=== PATIENT | male | born 2000 | race Hispanic/Latino ===

== ENCOUNTER 2022-01-18 21:17 | Emergency (ER) | payer OTHER ==
[~2022-01-18] VITALS: Ht 172.7 cm; Wt 78.0 kg
[~2022-01-18 21:17] MED LIST: CELEBREX200 MG PO; GABAPENTIN300 MG PO; HYDROCODON-ACE1 EA11 PO
== END 2022-01-18 22:22 | disposition home or self-care (01) ==
LOC: ED 21:17
DX: S90.31XA Contusion of right foot, initial encounter (principal); W23.0XXA Caught, crushed, jammed, or pinched between moving objects, initial encounter; Y99.0 Civilian activity done for income or pay
CPT/HCPCS: 73630; 99283-25

== ENCOUNTER 2023-02-09 06:29 | Emergency (ER) | payer OTHER ==
[~2023-02-09] VITALS: Ht 172.7 cm; Wt 72.0 kg
[2023-02-09 07:05] LABS: BASOPHILS 0.4 % (0-2); EOSINOPHILS 0.4 % (0-6); HEMATOCRIT 45.7 % (35.0-50.0); HEMOGLOBIN 15.7 g/dL (12.0-18.0); LYMPHOCYTES 40.1 % (24-44); MCH 29.7 (27-36); MCHC 34.4 g/dl (30-36); MCV 86.3 fl (81-99); MONOCYTES 5.9 % (0-12); NEUTROPHILS 53.2 % (39-80); PLATELET COUNT 232 K/uL (140-440); RDW 13.1 (10.5-15.0)
[2023-02-09 07:34] LABS: INFLUENZA B NAA NEGATIVE (NEGATIVE); RESPIRATORY SYNCYTIAL VIR NAA NEGATIVE (NEGATIVE)
[2023-02-09 08:11] VITALS: BP 110/93
== END 2023-02-09 08:12 | disposition home or self-care (01) ==
LOC: ED 06:29
PROVIDERS: Family Medicine
DX: R04.2 Hemoptysis (principal); J02.9 Acute pharyngitis, unspecified
CPT/HCPCS: 36415; 85025; 87502; 87651; U0002

== ENCOUNTER 2023-02-27 17:52 | Emergency (ER) | payer OTHER ==
[~2023-02-27] VITALS: Ht 172.7 cm; Wt 73.0 kg
--- OUTSIDE RECORDS SUMMARY | 2023-02-27 17:59 | XMS ---
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 Mimi VISIT COUNT (12 MO.) 3 DEMETRIS Mckenzie TOTAL 3 NOTE: Visits indicate total known visits. ED/UCC VISIT TRACKING (12 MO.) 02/27/2023 17:53 [facility]IS [place] TYPE: Emergency COMPLAINT: - LUNG PROBLEM 02/09/2023 06:29 [facility] [place] TYPE: Emergency COMPLAINT: - COUGHING BLOOD DIAGNOSES: - Acute pharyngitis, unspecified - Contact with and (suspected) exposure to COVID-19 - Encounter for screening for COVID-19 - Hemoptysis 12/18/2022 19:57 [facility] [place] TYPE: Emergency COMPLAINT: - LIP LACERATION DIAGNOSES: - Exposure to other specified factors, initial encounter - Laceration without foreign body of lip, initial encounter - Scar conditions and fibrosis of skin - Strain of unspecified muscle, fascia and tendon at shoulder and upper arm level, left arm, initial encounter INPATIENT VISIT TRACKING (12 MO.) No inpatient visits to display in this time frame [id number]
[2023-02-27 18:20] LABS: BASOPHILS 0.4 % (0-2); EOSINOPHILS 0.4 % (0-6); HEMATOCRIT 45.8 % (35.0-50.0); HEMOGLOBIN 15.7 g/dL (12.0-18.0); LYMPHOCYTES 25.7 % (24-44); MCH 29.1 (27-36); MCHC 34.3 g/dl (30-36); NEUTROPHILS 65.5 % (39-80); PLATELET COUNT 259 K/uL (140-440); RBC 5.39 M/ul (4.3-5.7)
[2023-02-27 18:34] LABS: ALBUMIN 4.6 g/dL (3.4-5.0); ALBUMIN/GLOBULIN RATIO 1.31 (1.1-2.4); ANION GAP 16.7 (7-21); BILIRUBIN, TOTAL 0.4 ng/dL (0.2-1.0); BUN/CREATININE RATIO 9.16 (6.0-28.6); CALCIUM 8.9 mg/dL (8.5-10.1); CREATININE, SERUM 1.2 mg/dL (0.70-1.30); POTASSIUM 2.7 mmol/L (3.5-5.1); PROTEIN, TOTAL 8.1 g/dL (6.4-8.2)
[2023-02-27 18:52] LABS: AMPHETAMINES, URINE NEGATIVE (NEGATIVE); BARBITURATES, URINE NEGATIVE (NEGATIVE); BENZODIAZEPINE, URINE NEGATIVE (NEGATIVE); BUPRENORPHINE, URINE NEGATIVE (NEGATIVE); CANNABINOID, URINE POSITIVE (NEGATIVE); COCAINE, URINE NEGATIVE (NEGATIVE); ECSTASY, URINE NEGATIVE (NEGATIVE); FENTANYL, URINE NEGATIVE (NEGATIVE); METHADONE, URINE NEGATIVE (NEGATIVE); OPIATES, URINE NEGATIVE (NEGATIVE); OXYCODONE, URINE NEGATIVE (NEGATIVE); PHENCYCLIDINE, URINE NEGATIVE (NEGATIVE)
[2023-02-27 22:04] VITALS: BP 131/67
--- NOTE | 2023-02-28 19:44 | EKG ---
[facility] [address] [place] [address] Signed Sinus tachycardia Rightward axis Biventricular hypertrophy Abnormal ECG No previous ECGs available Confirmed by WAI WARE MD ([id number]) on 02/28/2023 7:44:37 PM Electronically Signed By: WAI WARE 02/28/23 194 PATIENT NAME: KENNY LYON LORENA Electrocardiogram DATE OF : [birth year] PHYSICIAN: WAI WARE REPORT #: [id number] REPORT IS CONFIDENTIAL AND NOT TO BE RELEASED WITHOUT AUTHORIZATION
== END 2023-02-27 22:00 | disposition home or self-care (01) ==
LOC: ED 17:52
PROVIDERS: Emergency Medicine
DX: F12.929 Cannabis use, unspecified with intoxication, unspecified (principal); R00.0 Tachycardia, unspecified
CPT/HCPCS: 36415; 80053; 80307; 85025; 93005; 93010; A9270; J2060; J3480; J7030

== ENCOUNTER 2023-02-28 23:14 | Emergency (ER) | payer OTHER ==
[~2023-02-28] VITALS: Ht 172.7 cm; Wt 73.3 kg
--- OUTSIDE RECORDS SUMMARY | 2023-02-28 23:20 | XMS ---
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 Mimi VISIT COUNT (12 MO.) 4 DEMETRIS Mckenzie TOTAL 4 NOTE: Visits indicate total known visits. ED/UCC VISIT TRACKING (12 MO.) 02/28/2023 23:14 DEMET[facility]IS [place] TYPE: Emergency COMPLAINT: - ABD PAIN 02/27/2023 17:53 [facility]ET[facility]IS [place] TYPE: Emergency COMPLAINT: - LUNG PROBLEM DIAGNOSES: - Cannabis use, unspecified with intoxication, unspecified - Restlessness and agitation - Tachycardia, unspecified 02/09/2023 06:29 [facility]ET[facility]IS [place] TYPE: Emergency [...] visits to display in this time frame [id number]
[2023-03-01 00:14] VITALS: BP 128/80
== END 2023-03-01 00:15 | disposition home or self-care (01) ==
LOC: ED 23:14
DX: R10.9 Unspecified abdominal pain (principal)
CPT/HCPCS: 74022; 99284-25

== ENCOUNTER 2023-03-02 19:34 | Emergency (ER) | payer OTHER ==
[~2023-03-02] VITALS: Ht 172.7 cm; Wt 72.9 kg
--- OUTSIDE RECORDS SUMMARY | 2023-03-02 19:42 | XMS ---
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 Mimi VISIT COUNT (12 MO.) 5 DEMETRIS Mckenzie TOTAL 5 NOTE: Visits indicate total known visits. ED/UCC VISIT TRACKING (12 MO.) 03/02/2023 19:34 [facility]IS [place] TYPE: Emergency COMPLAINT: - NECK PAIN 02/28/2023 23:[address] [facility] [place] TYPE: Emergency COMPLAINT: - ABD PAIN 02/27/2023 17:53 DEMETRIS [facility] [place] Torres [facility] TYPE: Emergency COMPLAINT: - LUNG PROBLEM DIAGNOSES: - Cannabis use, unspecified with intoxication, unspecified - Restlessness and agitation - Tachycardia, unspecified 02/09/2023 06:[address] [facility] [place] TYPE: Emergency COMPLAINT: - COUGHING BLOOD DIAGNOSES: - Acute pharyngitis, unspecified - Contact with and (suspected) exposure to COVID-19 - Encounter for screening for COVID-19 - Hemoptysis 12/18/2022 19:57 [facility] Negron Torres [facility] [place] TYPE: Emergency COMPLAINT: - LIP LACERATION [...] visits to display in this time frame [id number]
[2023-03-02 20:58] LABS: BASOPHILS 0.7 % (0-2); EOSINOPHILS 0.9 % (0-6); HEMATOCRIT 45.1 % (35.0-50.0); HEMOGLOBIN 15.8 g/dL (12.0-18.0); LYMPHOCYTES 40.8 % (24-44); MCH 29.6 (27-36); MCV 84.6 fl (81-99); MONOCYTES 9.9 % (0-12); NEUTROPHILS 47.7 % (39-80); PLATELET COUNT 226 K/uL (140-440); RBC 5.34 M/ul (4.3-5.7); RDW 12.9 (10.5-15.0)
[2023-03-02 21:02] LABS: BILIRUBIN, URINE NEGATIVE (negative); BLOOD/HGB, URINE NEGATIVE (Negative); KETONE, URINE TRACE (Negative); LEUK ESTERASE, URINE NEGATIVE (negative); NITRITE, URINE NEGATIVE (negative)
[2023-03-02 21:15] LABS: AMPHETAMINES, URINE NEGATIVE (NEGATIVE); BARBITURATES, URINE NEGATIVE (NEGATIVE); BENZODIAZEPINE, URINE NEGATIVE (NEGATIVE); BUPRENORPHINE, URINE NEGATIVE (NEGATIVE); CANNABINOID, URINE POSITIVE (NEGATIVE); COCAINE, URINE NEGATIVE (NEGATIVE); ECSTASY, URINE NEGATIVE (NEGATIVE); FENTANYL, URINE NEGATIVE (NEGATIVE); METHADONE, URINE NEGATIVE (NEGATIVE); OPIATES, URINE NEGATIVE (NEGATIVE); OXYCODONE, URINE NEGATIVE (NEGATIVE); PHENCYCLIDINE, URINE NEGATIVE (NEGATIVE)
[2023-03-02 21:19] LABS: ACETAMINOPHEN 0 ug/mL (10-30); ALBUMIN 4.6 g/dL (3.4-5.0); ALBUMIN/GLOBULIN RATIO 1.31 (1.1-2.4); ALCOHOL, MEDICAL <3 ng/dL (<3); ALKALINE PHOSPHATASE 90 U/L (46-116); ALT (SGPT) 47 U/L (14-59); ANION GAP 17.6 (7-21); AST (SGOT) 77 U/L (15-37); BILIRUBIN, TOTAL 0.6 ng/dL (0.2-1.0); CARBON DIOXIDE 25 mmol/L (21-32); CHLORIDE 97 mmol/L (98-107); CREATININE, SERUM 1.25 mg/dL (0.70-1.30); GLOMERULAR FILTRATION RATE,EST 84 mL/min (>60); POTASSIUM 3.6 mmol/L (3.5-5.1); PROTEIN, TOTAL 8.1 g/dL (6.4-8.2); SALICYLATE 0.5 mg/dL (2.8-20.0); TSH, 3RD GENERATION 1.899 uIU/mL (0.358-3.740); UREA NITROGEN 14 mg/dL (7-18)
[2023-03-02 22:08] VITALS: BP 131/87
== END 2023-03-02 22:09 | disposition home or self-care (01) ==
LOC: ED 19:34
PROVIDERS: Internal Medicine
DX: F30.9 Manic episode, unspecified (principal); F29 Unspecified psychosis not due to a substance or known physiological condition
CPT/HCPCS: 36415; 80053; 80307; 81003; 84443; 85025; 99283; G0480

== ENCOUNTER 2023-03-08 15:38 | Emergency (ER) | payer OTHER ==
[~2023-03-08] VITALS: Ht 170.2 cm; Wt 73.3 kg
--- OUTSIDE RECORDS SUMMARY | 2023-03-08 15:47 | XMS ---
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 E.D. VISIT COUNT (12 MO.) [address] [facility] TOTAL 6 NOTE: Visits indicate total known visits. ED/UCC VISIT TRACKING (12 MO.) 03/08/2023 15:39 [facility]IS [place] TYPE: Emergency COMPLAINT: - MEDICAL CLEARANCE 03/02/2023 19:34 DEMET[facility]IS [place] TYPE: Emergency COMPLAINT: - NECK PAIN DIAGNOSES: - Anxiety disorder, unspecified - Manic episode, unspecified - Unspecified psychosis not due to a substance or known physiological condition 02/28/2023 23:[address] [facility] [place] TYPE: Emergency COMPLAINT: - ABD PAIN DIAGNOSES: - Other symptoms and signs involving cognitive functions and awareness - Unspecified abdominal pain 02[facility]27[facility]2023 17:[facility] [place] [facility] COMPLAINT: - LUNG PROBLEM DIAGNOSES: - Cannabis use, unspecified with intoxication, unspecified - Restlessness and agitation - Tachycardia, unspecified 02/09/2023 06:29 [facility] [place] [facility]: Emergency COMPLAINT: - COUGHING BLOOD DIAGNOSES: - Acute pharyngitis, unspecified - Contact with and (suspected) exposure to COVID-19 - Encounter for screening for COVID-19 - Hemoptysis 12/18/2022 19:[address] [facility] [place] TYPE: Emergency COMPLAINT: - LIP [...] visits to display in this time frame [id number]
[2023-03-08 18:23] VITALS: BP 120/74
== END 2023-03-08 18:24 | disposition home or self-care (01) ==
LOC: ED 15:38
DX: M62.830 Muscle spasm of back (principal); F31.2 Bipolar disorder, current episode manic severe with psychotic features
CPT/HCPCS: 99283

== ENCOUNTER 2023-03-10 12:55 | Emergency (ER) | payer OTHER ==
[~2023-03-10] VITALS: Ht 172.7 cm; Wt 74.9 kg
--- OUTSIDE RECORDS SUMMARY | 2023-03-10 13:03 | XMS ---
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 E.D. VISIT COUNT (12 MO.) [address] [facility] [address] TOTAL 7 NOTE: Visits indicate total known visits. ED/UCC VISIT TRACKING (12 MO.) 03/10/2023 12:56 [facility]IS [facility] TYPE: Emergency COMPLAINT: - SPITTING UP BLOOD 03/08/2023 15:39 [facility] [place] TYPE: Emergency COMPLAINT: - MEDICAL CLEARANCE 03/02/2023 19:34 DEMET[facility]IS [place] TYPE: Emergency COMPLAINT: - NECK PAIN DIAGNOSES: - Anxiety disorder, unspecified - Manic episode, unspecified - Unspecified psychosis not due to a substance or known physiological condition 02/28/2023 23:14 [facility] [place] TYPE: Emergency COMPLAINT: - ABD PAIN DIAGNOSES: - Other symptoms and signs involving cognitive functions and awareness - Unspecified abdominal pain 02/27/2023 17:53 [facility]IS [place] TYPE: Emergency [...] visits to display in this time frame [id number]
[2023-03-10 15:15] VITALS: BP 110/61
== END 2023-03-10 15:15 | disposition home or self-care (01) ==
LOC: ED 12:55
DX: R04.0 Epistaxis (principal)
CPT/HCPCS: 99283

== ENCOUNTER 2023-03-12 04:13 | Emergency (ER) | payer OTHER ==
[~2023-03-12] VITALS: Ht 172.7 cm; Wt 75.0 kg
--- OUTSIDE RECORDS SUMMARY | 2023-03-12 04:21 | XMS ---
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 E.D. VISIT COUNT (12 MO.) [address] [facility] [facility] TOTAL 8 NOTE: Visits indicate total known visits. ED/UCC VISIT TRACKING (12 MO.) 03/12/2023 04:14 [facility]IS [facility] [place] TYPE: Emergency COMPLAINT: - DENTAL PROBLEM 03/10/2023 12:56 DEMETRIS [place] TYPE: Emergency COMPLAINT: - SPITTING UP BLOOD 03/08/2023 15:39 [facility] [place] TYPE: Emergency COMPLAINT: - MEDICAL CLEARANCE DIAGNOSES: - Bipolar disorder, current episode manic severe with psychotic features - Muscle spasm of back - Pain in thoracic spine 03/02/2023 19:34 [facility] [place] TYPE: Emergency COMPLAINT: - NECK PAIN DIAGNOSES: - Anxiety disorder, unspecified - Manic episode, unspecified - Unspecified psychosis not due to a substance or known physiological condition 02/28/2023 23:[address] [facility] [address] [facility] [place] TYPE: Emergency COMPLAINT: - ABD PAIN DIAGNOSES: - Other symptoms and signs involving cognitive functions and awareness - Unspecified abdominal pain 02/27/2023 17:[address] [facility] [address] [facility] [place] TYPE: Emergency COMPLAINT: - LUNG PROBLEM DIAGNOSES: - Cannabis use, unspecified with intoxication, unspecified - Restlessness and agitation - Tachycardia, unspecified 02/09/2023 06:29 [facility] [place] TYPE: Emergency COMPLAINT: - COUGHING BLOOD DIAGNOSES: - Acute pharyngitis, unspecified - Contact with and (suspected) exposure to COVID-19 - Encounter for screening for COVID-19 - Hemoptysis 12/18/2022 19:57 [facility] [place] TYPE: Emergency COMPLAINT: - [...] visits to display in this time frame [id number]
[2023-03-12 04:56] VITALS: BP 126/77
== END 2023-03-12 04:57 | disposition home or self-care (01) ==
LOC: ED 04:13
DX: Z13.39 Encounter for screening examination for other mental health and behavioral disorders (principal); Z87.820 Personal history of traumatic brain injury
CPT/HCPCS: 99282

== ENCOUNTER 2023-03-12 23:30 | Emergency (ER) | payer OTHER ==
[~2023-03-12] VITALS: Ht 172.7 cm; Wt 75.0 kg
[2023-03-13 01:00] VITALS: BP 136/76
== END 2023-03-13 00:50 | disposition home or self-care (01) ==
LOC: ED 23:30
DX: Z00.8 Encounter for other general examination (principal); K08.89 Other specified disorders of teeth and supporting structures
CPT/HCPCS: 99283

== ENCOUNTER 2023-03-14 19:20 | Emergency (ER) | payer OTHER ==
[~2023-03-14] VITALS: Ht 172.7 cm; Wt 73.9 kg
[2023-03-14 21:06] VITALS: BP 127/76
== END 2023-03-14 21:07 | disposition home or self-care (01) ==
LOC: ED 19:20
DX: F22 Delusional disorders (principal)
CPT/HCPCS: 99283

== ENCOUNTER 2023-08-05 15:48 | Emergency (ER) | payer OTHER ==
[~2023-08-05] VITALS: Ht 172.7 cm; Wt 82.5 kg
[2023-08-05] MEDS ORDERED: AMOX TR-K CLV1 EAC1 PO (18:01)
[2023-08-05] MEDS ORDERED: MUPIROCIN22 GM TOP (18:01)
[2023-08-05 20:17] VITALS: BP 106/71
== END 2023-08-05 20:18 | disposition home or self-care (01) ==
LOC: ED 15:48
DX: S43.401A Unspecified sprain of right shoulder joint, initial encounter (principal); X58.XXXA Exposure to other specified factors, initial encounter
CPT/HCPCS: 73030

== ENCOUNTER 2023-08-11 17:08 | Emergency (ER) | payer OTHER ==
[~2023-08-11] VITALS: Ht 172.7 cm; Wt 80.0 kg
[~2023-08-11 17:08] MED LIST changes: +AMOX TR-K CLV1 EAC1 PO; +MUPIROCIN22 GM TOP
[2023-08-11] MEDS ORDERED: ondansetron HCL 4 MG/2 ML VIAL IV ONE (18:15)
[2023-08-11 18:29] LABS: EOSINOPHILS 0.6 % (0-6); HEMATOCRIT 45.3 % (35.0-50.0); HEMOGLOBIN 15.5 g/dL (12.0-18.0); LYMPHOCYTES 20.4 % (24-44); MCH 29.8 (27-36); MCHC 34.1 g/dl (30-36); MCV 87.4 fl (81-99); MONOCYTES 4.2 % (0-12); NEUTROPHILS 73.8 % (39-80); PLATELET COUNT 203 K/uL (140-440); RBC 5.19 M/ul (4.3-5.7); RDW 13.3 (10.5-15.0)
[2023-08-11 18:35] LABS: BILIRUBIN, URINE NEGATIVE (negative); BLOOD/HGB, URINE NEGATIVE (Negative); KETONE, URINE NEGATIVE (Negative); LEUK ESTERASE, URINE NEGATIVE (negative); NITRITE, URINE NEGATIVE (negative)
[2023-08-11 18:43] LABS: ALBUMIN 4.5 g/dL (3.4-5.0); ALBUMIN/GLOBULIN RATIO 1.41 (1.1-2.4); ANION GAP 12.9 (7-21); BILIRUBIN, TOTAL 0.4 ng/dL (0.2-1.0); BUN/CREATININE RATIO 7.92 (6.0-28.6); CALCIUM 9.3 mg/dL (8.5-10.1); CREATININE, SERUM 1.01 mg/dL (0.70-1.30); POTASSIUM 3.9 mmol/L (3.5-5.1); PROTEIN, TOTAL 7.7 g/dL (6.4-8.2)
[2023-08-11 19:27] VITALS: BP 126/73
[2023-08-11 19:37] LABS: AMPHETAMINES, URINE NEGATIVE (NEGATIVE); BARBITURATES, URINE NEGATIVE (NEGATIVE); BENZODIAZEPINE, URINE NEGATIVE (NEGATIVE); BUPRENORPHINE, URINE NEGATIVE (NEGATIVE); CANNABINOID, URINE POSITIVE (NEGATIVE); COCAINE, URINE NEGATIVE (NEGATIVE); ECSTASY, URINE NEGATIVE (NEGATIVE); FENTANYL, URINE NEGATIVE (NEGATIVE); METHADONE, URINE NEGATIVE (NEGATIVE); OPIATES, URINE NEGATIVE (NEGATIVE); OXYCODONE, URINE NEGATIVE (NEGATIVE); PHENCYCLIDINE, URINE NEGATIVE (NEGATIVE)
[2023-09-16] MEDS ORDERED: CYCLOBENZAPRINE10 MG PO (22:08)
== END 2023-08-11 19:28 | disposition home or self-care (01) ==
LOC: ED 17:08
PROVIDERS: Emergency Medicine; Internal Medicine
DX: R11.10 Vomiting, unspecified (principal); R47.89 Other speech disturbances
CPT/HCPCS: 36415; 80053; 80307; 81003; 83690; 85025; 96374; 99284-25; J2405

== ENCOUNTER 2024-01-02 20:50 | Emergency (ER) | payer OTHER ==
[~2024-01-02] VITALS: Ht 172.7 cm; Wt 93.2 kg
--- OUTSIDE RECORDS SUMMARY | ~2024-01-02 | XMS | Continuity of Care Document ---
Demographics + + + | Address | [address] | | | [place] [address] | + + + | Preferred Language | Unknown | + + + | Marital Status | Never | + + + | Gnosticist Affiliation | Unknown | + + + | Race | Unknown | + + + | Ethnic Group | or | + + + Author + + + | Author | [facility] | + + + | Organization | [facility] | + + + | Address | [address] | | | [place] [address] | + + + | Phone | | + + + Care Team Providers + + + + | Care Rn Telemetry Name | Role | Phone | + + + + Unavailable | Unavailable | + + + + Allergies No information. Encounters No information. Functional Status No information. Immunizations No information. Medications No information. Problems + + + + | date | description | facility | + + + + | 2023-10-15 16:22 | Hypokalemia | [facility] | + + + + | 2023-10-15 16:22 | Other disorders of | [facility] | | | electrolyte and fluid | | | | balance, not elsewhere | | | | classified | | + + + + | 2023-10-15 16:22 | Essential (primary) | [facility] | | | hypertension | | + + + + | 2023-10-15 16:22 | Other muscle spasm | [facility] | + + + + | 2023-10-16 17:33 | Manic episode, unspecified | [facility] | | | (CMS/HCC) | | + + + + Procedures No information. Results/Labs No information. Social History +--------+ + + | date | description | facility | +--------+ + + Vital Signs No information."
[~2024-01-02 20:50] MED LIST changes: +CYCLOBENZAPRINE10 MG PO
[2024-01-02] MEDS ORDERED: INVEGA SUS117 MG/0.7 IM (21:07)
[2024-01-02] MEDS ORDERED: LACTATED RINGER'S 1,000 ML IV ONE (21:15)
[2024-01-02] MEDS ORDERED: diphenhydrAMINE HCL 50 MG/ML VIAL IV ONE (21:15)
[2024-01-02 21:16] LABS: BILIRUBIN, URINE NEGATIVE (negative); BLOOD/HGB, URINE NEGATIVE (Negative); KETONE, URINE NEGATIVE (Negative); LEUK ESTERASE, URINE NEGATIVE (negative); NITRITE, URINE NEGATIVE (negative)
[2024-01-02 21:25] LABS: BASOPHILS 1.4 % (0-2); EOSINOPHILS 1.2 % (0-6); HEMATOCRIT 40.4 % (35.0-50.0); HEMOGLOBIN 13.5 g/dL (12.0-18.0); MCH 29.8 (27-36); MCHC 33.4 g/dl (30-36); MCV 89.2 fl (81-99); MONOCYTES 6.4 % (0-12); PLATELET COUNT 191 K/uL (140-440); RBC 4.53 M/ul (4.3-5.7); RDW 13.8 (10.5-15.0)
[2024-01-02 21:30] LABS: AMPHETAMINES, URINE NEGATIVE (NEGATIVE); BARBITURATES, URINE NEGATIVE (NEGATIVE); BENZODIAZEPINE, URINE NEGATIVE (NEGATIVE); BUPRENORPHINE, URINE NEGATIVE (NEGATIVE); CANNABINOID, URINE POSITIVE (NEGATIVE); COCAINE, URINE NEGATIVE (NEGATIVE); ECSTASY, URINE NEGATIVE (NEGATIVE); FENTANYL, URINE NEGATIVE (NEGATIVE); METHADONE, URINE NEGATIVE (NEGATIVE); OPIATES, URINE NEGATIVE (NEGATIVE); OXYCODONE, URINE NEGATIVE (NEGATIVE); PHENCYCLIDINE, URINE NEGATIVE (NEGATIVE)
[2024-01-02 21:45] LABS: ALBUMIN 3.8 g/dL (3.4-5.0); ALBUMIN/GLOBULIN RATIO 1.19 (1.1-2.4); ANION GAP 15.7 (7-21); BILIRUBIN, TOTAL 0.3 ng/dL (0.2-1.0); BUN/CREATININE RATIO 13.11 (6.0-28.6); CALCIUM 8.6 mg/dL (8.5-10.1); CREATININE, SERUM 1.22 mg/dL (0.70-1.30); MAGNESIUM 1.7 mg/dL (1.8-2.4); PHOSPHORUS, INORGANIC 4.7 mg/dL (2.5-4.9); POTASSIUM 3.7 mmol/L (3.5-5.1)
[2024-01-02] MEDS ORDERED: MAGNESIUM OXIDE 400 MG TABLET PO ONE (22:00)
[2024-01-02 22:13] VITALS: BP 127/65
--- NOTE | 2024-01-03 21:23 | EKG ---
[facility] [address] [place] [address] Signed Normal sinus rhythm Normal ECG When compared with ECG of 27-FEB-2023 18:10, Vent. rate has decreased BY 58 BPM T wave amplitude has decreased in Anterolateral leads Confirmed by Travon Multani MD () on 01/03/2024 9:23:10 PM Electronically Signed By: TRAVON MULTANI MD 01/03/242122 PATIENT NAME: LYONKENNY PASCUAL LORENA Electrocardiogram DATE OF : [birth year] PHYSICIAN: TRAVON MULTANI MD REPORT #: [id number] REPORT IS CONFIDENTIAL AND NOT TO BE RELEASED WITHOUT AUTHORIZATION
== END 2024-01-02 22:21 | disposition home or self-care (01) ==
LOC: ED 20:50
PROVIDERS: Internal Medicine
DX: G24.09 Other drug induced dystonia (principal); T43.595A Adverse effect of other antipsychotics and neuroleptics, initial encounter; Z79.899 Other long term (current) drug therapy
CPT/HCPCS: 36415; 80053; 80307; 81003; 83735; 84100; 84484; 85025; 93005; 93010; 96374; 99284-25; J1200; J7121